=== PATIENT | male | born 1980 | race Caucasian/White ===

== ENCOUNTER 2016-11-13 14:08 | Emergency (ER) | payer OTHER ==
[~2016-11-13] VITALS: Ht 180.3 cm; Wt 86.4 kg
[~2016-11-13 14:08] MED LIST: BENA20TA3 PO; DIVA500T35 PO; LACO50TA2 PO; OXCA300T PO; [UNRECOGNIZED DRUG - OTHER]
[2016-11-13] MEDS ORDERED: BRIV10TA PO (14:39)
[2016-11-13] MEDS ORDERED: TAMS0.4C32 PO (14:39)
[2016-11-13 16:53] LABS: BASOPHILS % (AUTO) 0.3 % (0.0-2.0); EOSINOPHILS % (AUTO) 0.6 % (1.0-6.0); HEMATOCRIT 36.7 % (41-53); HEMOGLOBIN 12.2 g/dL (13.5-17.5); LYMPHOCYTES # (AUTO) 3.2 K/uL (1.0-4.8); LYMPHOCYTES % (AUTO) 23.4 % (22.0-44.0); MEAN CORPUSCULAR HEMOGLOBIN 30.1 pg (26.0-34.0); MEAN CORPUSCULAR HGB CONC 33.3 G/dL (31.0-37.0); MEAN CORPUSCULAR VOLUME 90 fL (80-100); MONOCYTES # (AUTO) 0.9 K/uL (0.1-1.0); MONOCYTES % (AUTO) 6.6 % (2.0-9.0); NEUTROPHILS # (AUTO) 9.5 K/uL (1.8-7.7); NEUTROPHILS % (AUTO) 69.1 % (40.0-70.0); PLATELET COUNT (AUTO) 192 K/uL (150-450); RED BLOOD CELL COUNT(AUTO) 4.06 MIL/uL (4.50-5.90); RED CELL DISTRIBUTION WIDTH 14.2 % (11.5-14.5); WHITE BLOOD COUNT (AUTO) 13.7 K/uL (4.5-11.0)
[2016-11-13 17:06] LABS: CALCIUM, TOTAL 8.6 mg/dL (8.8-10.5); CREATININE 1.51 mg/dL (0.60-1.30)
[2016-11-13] MEDS ORDERED: HYDROCODONE/ACETAMINOPHEN 5-325 MG TABLET PO ONE (18:15)
[2016-11-13] MEDS ORDERED: VALPROIC ACID 250 MG CAPSULE PO ONE (18:15)
[2016-11-13 19:26] VITALS: BP 119/66
== END 2016-11-13 20:09 | disposition home or self-care (01) ==
LOC: EMS 14:09
DX: S92.511A Displaced fracture of proximal phalanx of right lesser toe(s), initial encounter for closed fracture (principal); G40.909 Epilepsy, unspecified, not intractable, without status epilepticus; I10 Essential (primary) hypertension; J45.909 Unspecified asthma, uncomplicated; K21.9 Gastro-esophageal reflux disease without esophagitis; Z88.0 Allergy status to penicillin; W22.01XA Walked into wall, initial encounter; Y93.89 Activity, other specified; Y92.89 Other specified places as the place of occurrence of the external cause; Y99.8 Other external cause status
CPT/HCPCS: 99285

== ENCOUNTER 2019-10-07 13:59 | Emergency (ER) | payer OTHER ==
[~2019-10-07] VITALS: Ht 180.3 cm; Wt 72.5 kg
[~2019-10-07 13:59] MED LIST changes: +BENA20TA10 PO; -BENA20TA3 PO; +BRIV10TA PO; +DIVA-78 PO; -DIVA500T35 PO; -OXCA300T PO; +OXCA300T29 PO; +TAMS-13 PO
[2019-10-07] MEDS ORDERED: LACO100 PO (14:07)
[2019-10-07] MEDS ORDERED: AMIT10TA6 PO (14:41)
[2019-10-07] MEDS ORDERED: DiphenhydrAMINE HCL 50 MG/ML VIAL IVP STA (15:10)
[2019-10-07] MEDS ORDERED: ACETAMINOPHEN 500 MG TABLET PO ONE (15:15)
[2019-10-07] MEDS ORDERED: METOCLOPRAMIDE HCL 5 MG/ML 2 ML VIAL IVP ONE (15:15)
[2019-10-07 16:30] VITALS: BP 124/64
== END 2019-10-07 17:23 | disposition home or self-care (01) ==
LOC: EMS 14:00
DX: S01.552A Open bite of oral cavity, initial encounter (principal); G40.909 Epilepsy, unspecified, not intractable, without status epilepticus; J45.909 Unspecified asthma, uncomplicated; G43.909 Migraine, unspecified, not intractable, without status migrainosus; K21.9 Gastro-esophageal reflux disease without esophagitis; I10 Essential (primary) hypertension; Z88.0 Allergy status to penicillin; X58.XXXA Exposure to other specified factors, initial encounter; Y93.89 Activity, other specified; Y92.096 Garden or yard of other non-institutional residence as the place of occurrence of the external cause; Y99.8 Other external cause status
CPT/HCPCS: 36415; 70450; 80164; 96374; 96375; 99284; J1200; J2765

== ENCOUNTER 2023-01-13 19:25 | Emergency (ER) | payer OTHER ==
[~2023-01-13] VITALS: Ht 175.3 cm; Wt 78.0 kg
[~2023-01-13 19:25] MED LIST changes: +AMIT-166 PO; -BENA20TA10 PO; -BRIV10TA PO; +DIVA-112 PO; -DIVA-78 PO; +LACO100 PO; -LACO50TA2 PO; -OXCA300T29 PO; +OXCA300T70 PO; -TAMS-13 PO
[2023-01-13] MEDS ORDERED: HEPA500018 SQ (19:35)
[2023-01-13 19:36] VITALS: BP 140/55
[2023-01-13] MEDS ORDERED: SEVE800T27 PO (19:41)
[2023-01-13] MEDS ORDERED: ATOR40TA71 PO (19:41)
[2023-01-13] MEDS ORDERED: LACO200T4 PO (19:41)
[2023-01-13] MEDS ORDERED: NIFE90TA91 PO (19:41)
[2023-01-13] MEDS ORDERED: ACET500C4 PO (19:41)
[2023-01-13] MEDS ORDERED: PROP20TA96 PO (19:41)
[2023-01-13] MEDS ORDERED: LIDO700A30 TD (19:41)
[2023-01-13] MEDS ORDERED: GABA-1181 PO (19:41)
[2023-01-13] MEDS ORDERED: KETOROLAC TROMETHAMINE 30 MG/ML VIAL IM ONE (22:00)
[2023-01-13] MEDS ORDERED: HYDROCODONE/ACETAMINOPHEN 5-325 MG TABLET PO ONE (22:15)
== END 2023-01-13 22:49 | disposition home or self-care (01) ==
LOC: EMS 19:28
DX: S90.31XA Contusion of right foot, initial encounter (principal); J45.909 Unspecified asthma, uncomplicated; K21.9 Gastro-esophageal reflux disease without esophagitis; I10 Essential (primary) hypertension; G43.909 Migraine, unspecified, not intractable, without status migrainosus; F12.90 Cannabis use, unspecified, uncomplicated; Z88.0 Allergy status to penicillin; W22.8XXA Striking against or struck by other objects, initial encounter; Y93.89 Activity, other specified; Y92.89 Other specified places as the place of occurrence of the external cause; Y99.8 Other external cause status
CPT/HCPCS: 99284; 73610-TC; 73630-TC; Z7502; Z7610

== ENCOUNTER 2023-02-23 13:34 | Emergency (ER) | payer OTHER ==
[~2023-02-23] VITALS: Ht 175.3 cm; Wt 78.0 kg
[~2023-02-23 13:34] MED LIST changes: +ACET500C4 PO; -AMIT-166 PO; +ATOR40TA71 PO; -DIVA-112 PO; +GABA-1181 PO; +HEPA500018 SQ; -LACO100 PO; +LACO200T4 PO; +LIDO700A30 TD; +NIFE90TA91 PO; +PROP20TA96 PO; +SEVE800T27 PO
[2023-02-23 15:30] VITALS: BP 109/70
== END 2023-02-23 15:59 | disposition home or self-care (01) ==
LOC: EMS 13:37
DX: G40.909 Epilepsy, unspecified, not intractable, without status epilepticus (principal); J45.909 Unspecified asthma, uncomplicated; I10 Essential (primary) hypertension; G43.909 Migraine, unspecified, not intractable, without status migrainosus; F12.90 Cannabis use, unspecified, uncomplicated; Z98.890 Other specified postprocedural states; Z88.0 Allergy status to penicillin
CPT/HCPCS: 99283; Z7502

== ENCOUNTER 2023-04-18 09:25 | Emergency (ER) | payer OTHER ==
[~2023-04-18] VITALS: Ht 180.3 cm; Wt 76.0 kg
[~2023-04-18 09:25] MED LIST changes: -HEPA500018 SQ
[2023-04-18 09:47] VITALS: TEMP 97.8
[2023-04-18] MEDS ORDERED: LevETIRAcetam 1,000 MG in DEXTROSE 5%-WATER 100 ML IV ONE (10:00)
[2023-04-18 10:16] LABS: HEMOGLOBIN 13.6 g/dL (13.5-17.5); LYMPHOCYTES # (AUTO) 3.2 K/uL (1.0-4.8); LYMPHOCYTES % (AUTO) 37.5 % (22.0-44.0); RED BLOOD CELL COUNT(AUTO) 3.92 MIL/uL (4.50-5.90)
[2023-04-18] MEDS: SODIUM CHLORIDE 0.9% 1,000 ML IV ONE ×2 (10:17→10:23)
[2023-04-18 10:18] LABS: BASOPHILS % (AUTO) 0.9 % (0.0-2.0); EOSINOPHILS % (AUTO) 1.2 % (1.0-6.0); HEMATOCRIT 40.9 % (41-53); MEAN CORPUSCULAR HEMOGLOBIN 34.7 pg (26.0-34.0); MEAN CORPUSCULAR HGB CONC 33.2 G/dL (31.0-37.0); MEAN CORPUSCULAR VOLUME 104 fL (80-100); MONOCYTES # (AUTO) 0.7 K/uL (0.1-1.0); MONOCYTES % (AUTO) 8.7 % (2.0-9.0); NEUTROPHILS # (AUTO) 4.4 K/uL (1.8-7.7); NEUTROPHILS % (AUTO) 51.7 % (40.0-70.0); PLATELET COUNT (AUTO) 221 K/uL (150-450); RED CELL DISTRIBUTION WIDTH 14.5 % (11.5-14.5)
[2023-04-18 10:23] LABS: ANION GAP 12 mmol/L (8-16); CALCIUM, TOTAL 8.4 mg/dL (8.8-10.5); CARBON DIOXIDE 26 mmol/L (22-29); CHLORIDE 100 mmol/L (98-107); CREATININE 10.48 mg/dL (0.60-1.30); GLOMERULAR FILTR. RATE CALC 5 mL/min (>60); GLUCOSE,RANDOM 78 mg/dL (70-110); POTASSIUM 5.4 mmol/L (3.5-5.1); SODIUM SERUM 138 mmol/L (136-145)
[2023-04-18 10:36] LABS: ALBUMIN 2.7 g/dL (3.4-5.0); BILIRUBIN,TOTAL 0.3 mg/dL (0.1-1.0)
[2023-04-18 10:55] LABS: ALKALINE PHOSPHATASE 74 U/L (46-116); ASPARTATE AMINOTRANSFERASE 13 U/L (15-37); TOTAL PROTEIN, SERUM 6.6 g/dL (6.4-8.2)
[2023-04-18] MEDS ORDERED: SODI5POW3 PO (11:10)
[2023-04-18] MEDS ORDERED: DEPAKOTE PO (11:10)
[2023-04-18] MEDS ORDERED: OXCA300T70 PO (11:12)
[2023-04-18 11:18] VITALS: BP 106/71; PULSE 74; RESP 16
[2023-04-18 11:19] LABS: ALANINE AMINOTRANSFERASE < 6 U/L (12-78)
== END 2023-04-18 11:19 | disposition home or self-care (01) ==
LOC: EMS 09:26
DX: G40.909 Epilepsy, unspecified, not intractable, without status epilepticus (principal); E87.5 Hyperkalemia; J45.909 Unspecified asthma, uncomplicated; I10 Essential (primary) hypertension; K21.9 Gastro-esophageal reflux disease without esophagitis; G43.909 Migraine, unspecified, not intractable, without status migrainosus; N18.6 End stage renal disease; F12.90 Cannabis use, unspecified, uncomplicated; Z99.2 Dependence on renal dialysis; Z88.0 Allergy status to penicillin
CPT/HCPCS: 99285; 96365; 71045; 80053; 85025; 36415; 93005; J0712; J7060

== ENCOUNTER 2023-07-23 13:53 | Emergency (ER) | payer OTHER ==
[~2023-07-23] VITALS: Ht 180.3 cm; Wt 71.0 kg
[~2023-07-23 13:53] MED LIST changes: -ACET500C4 PO; -ATOR40TA71 PO; +DEPAKOTE PO; -GABA-1181 PO; -LACO200T4 PO; -LIDO700A30 TD; -NIFE90TA91 PO; -PROP20TA96 PO; +SODI5POW3 PO; -[UNRECOGNIZED DRUG - OTHER]
[2023-07-23 14:01] VITALS: TEMP 98.3
[2023-07-23 15:09] LABS: BASOPHILS % (AUTO) 0.7 % (0.0-2.0); EOSINOPHILS % (AUTO) 1.5 % (1.0-6.0); HEMATOCRIT 42.8 % (41-53); HEMOGLOBIN 14.1 g/dL (13.5-17.5); LYMPHOCYTES # (AUTO) 2.6 K/uL (1.0-4.8); LYMPHOCYTES % (AUTO) 29.8 % (22.0-44.0); MEAN CORPUSCULAR HEMOGLOBIN 36.4 pg (26.0-34.0); MEAN CORPUSCULAR VOLUME 110 fL (80-100); MONOCYTES # (AUTO) 0.7 K/uL (0.1-1.0); MONOCYTES % (AUTO) 8.5 % (2.0-9.0); NEUTROPHILS # (AUTO) 5.2 K/uL (1.8-7.7); NEUTROPHILS % (AUTO) 59.5 % (40.0-70.0); PLATELET COUNT (AUTO) 238 K/uL (150-450); RED BLOOD CELL COUNT(AUTO) 3.88 MIL/uL (4.50-5.90); RED CELL DISTRIBUTION WIDTH 16.9 % (11.5-14.5); WHITE BLOOD COUNT (AUTO) 8.8 K/uL (4.5-11.0)
[2023-07-23 15:20] LABS: CALCIUM, TOTAL 8.5 mg/dL (8.8-10.5); CREATININE 10.03 mg/dL (0.60-1.30); POTASSIUM 4.5 mmol/L (3.5-5.1)
[2023-07-23 15:22] LABS: ALBUMIN 2.9 g/dL (3.4-5.0); BILIRUBIN,TOTAL 0.4 mg/dL (0.1-1.0); TOTAL PROTEIN, SERUM 6.9 g/dL (6.4-8.2)
[2023-07-23 15:23] LABS: LACTIC ACID 1.6 mmol/L (0.4-2.0); TROPONIN I-HIGH SENSITIVITY 7 ng/L (<76)
[2023-07-23 15:26] LABS: RBC MORPHOLOGY COMMENT ABNORMAL RBC MORPH
[2023-07-23] MEDS ORDERED: DIPH-654 PO (17:41)
[2023-07-23] MEDS ORDERED: METR250 PO (17:41)
[2023-07-23] MEDS ORDERED: HYDR30CR3 TP (17:41)
[2023-07-23] MEDS ORDERED: CEPH-558 PO (17:41)
[2023-07-23] MEDS ORDERED: ACET-66 PO (17:41)
[2023-07-23 18:26] VITALS: BP 142/79; PULSE 80; RESP 16
== END 2023-07-23 18:27 | disposition home or self-care (01) ==
LOC: EMS 13:57
DX: K52.9 Noninfective gastroenteritis and colitis, unspecified (principal); R10.32 Left lower quadrant pain; Q61.3 Polycystic kidney, unspecified; I12.0 Hypertensive chronic kidney disease with stage 5 chronic kidney disease or end stage renal disease; N18.6 End stage renal disease; J45.909 Unspecified asthma, uncomplicated; F31.9 Bipolar disorder, unspecified; G43.909 Migraine, unspecified, not intractable, without status migrainosus; F12.90 Cannabis use, unspecified, uncomplicated; Z98.890 Other specified postprocedural states; Z99.2 Dependence on renal dialysis; Z88.0 Allergy status to penicillin
CPT/HCPCS: 74176; 80053; 83605; 83690; 84484; 85025; 99284